=== PATIENT | male | born 1960 | race African-American/Black ===

== ENCOUNTER 2024-04-26 19:13 | Emergency (ER) | payer OTHER ==
[~2024-04-26] VITALS: Ht 182.9 cm; Wt 75.7 kg
[2024-04-26 19:28] VITALS: BP 108/69; PULSE 75; RESP 16; TEMP 97.3; O2SAT 100
[2024-04-26 21:01] VITALS: O2SAT 98
== END 2024-04-26 21:28 | disposition home or self-care (01) ==
LOC: MED 19:13
DX: K70.30 Alcoholic cirrhosis of liver without ascites (principal); Z79.899 Other long term (current) drug therapy
CPT/HCPCS: 99281